=== PATIENT | female | born 1975 | race American Indian/Alaskan Native ===

== ENCOUNTER 2021-10-10 17:50 | Emergency (ER) | payer OTHER, SELFPAY ==
[2021-10-10 18:06] VITALS: BP 153/90; PULSE 100; RESP 16; TEMP 36.7; O2SAT 99; BMI 20.9
[2021-10-10] MEDS: Morphine Sulfate Immed Release 15 MG TABLET PO (20:12)
[2021-10-10] MEDS: Lidocaine HCl 2 % 20 ML VIAL 5 ML INFILTRATI (20:16)
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
--- NOTE | 2021-10-10 22:34 | PC.NURSE ---
DRAIN PLACE TO [facility] BY ERICA CLINTON AND DR YEAGER.
[2021-10-10] MEDS: Ibuprofen 600 MG TABLET PO (22:43)
== END 2021-10-10 22:55 | disposition home or self-care (01) ==
PROVIDERS: Emergency Provider Emergency Medicine
DX: N75.1 Abscess of Bartholin's gland (principal)
CPT/HCPCS: 56420; 87071; 87077; 87186; 87205; 99284

== ENCOUNTER 2021-10-11 14:12 | Emergency (ER) | payer OTHER, SELFPAY ==
[2021-10-11 14:35] VITALS: BP 131/70; PULSE 82; RESP 16; TEMP 36.6; O2SAT 100; BMI 23.3
--- NOTE | 2021-10-11 17:17 | ECG_ITS ---
Test Reason : ABD PAIN Blood Pressure : / mmHG Vent. Rate : 069 BPM Atrial Rate : 069 BPM P-R Int : 184 ms QRS Dur : 078 ms QT Int : 408 ms P-R-T Axes : 079 059 050 degrees QTc Int : 437 ms Normal sinus rhythm Normal ECG No previous ECGs available Referred By: Naya Tobias Electronically Signed By:MELISSA ORTIZ MD
--- NOTE | 2021-10-11 17:18 | ED_ITS ---
HPI - General Adult General Chief complaint: General Medical Stated complaint: dizziness Time Seen by Provider: 10/11/21 17:16 Source: patient Mode of arrival: ambulatory Limitations: no limitations History of Present Illness HPI narrative: 46-year-old female came in for evaluation of dizziness and lightheadedness. Patient was seen yesterday for Bartholin gland abscess, status post I&D last night patient was prescribed ibuprofen 600 mg if needed for pain patient was taking the medicine, all day today patient has been having abdominal discomfort, feeling dizzy and woozy lightheadedness. Patient declined fever, chills, chest pain, nausea, vomiting, diarrhea, or vaginal bleeding or discharge. Related Data Home Medications Medication Instructions Recorded Confirmed albuterol sulfate 90 mcg/actuation 1 - 2 puff INHALATION Q6H PRN g 02/06/21 aerosol inhaler bupropion HCl 150 mg 24 hr tablet, 150 mg PO QAM 02/06/21 extended release (Wellbutrin XL) docusate sodium 100 mg capsule 100 mg PO DAILY 02/06/21 fluticasone 250 mcg-salmeterol 50 1 inh INHALATION BID 02/06/21 mcg/dose blistr powdr for inhalation (Advair Diskus) loratadine 10 mg tablet (Allergy 10 mg PO DAILY PRN 02/06/21 Relief (loratadine)) ondansetron 4 mg disintegrating 4 mg PO Q8H PRN 02/06/21 tablet polyethylene glycol 3350 17 17 g PO DAILY 02/06/21 gram/dose oral powder sennosides 8.6 mg capsule (senna) 8.6 mg PO DAILY 02/06/21 Previous Rx's Medication Instructions Recorded carisoprodol 350 mg tablet 350 mg PO BEDTIME PRN #14 tab 02/18/21 ibuprofen 600 mg tablet 600 mg PO Q8H PRN #60 tab 10/10/21 Allergies Allergy/AdvReac Type Severity Reaction Status Date / Time latex [LATEX] Allergy Mild RASH Unverified 05/15/20 19:05 cyclobenzaprine Allergy Unknown RASH Unverified 05/15/20 19:05 [From FLEXERIL] gabapentin [GABAPENTIN] Allergy Unknown HIVES Unverified 05/15/20 19:05 tramadol [TRAMADOL] AdvReac Severe SEIZURE Unverified 05/15/20 19:05 Epideral AdvReac Unknown anaphylaxis Uncoded 03/31/16 00:00 flexiril AdvReac Unknown hives Uncoded 03/31/16 00:00 gabapentin AdvReac Unknown rash Uncoded 03/31/16 00:00 tramadol AdvReac Unknown anaphylaxis Uncoded 03/31/16 00:00 Review of Systems Review of Systems: All other systems are reviewed and are negative Constitutional: Reports as per HPI and Reports no additional constitutional c omplaints Eyes: Reports as per HPI and Reports no additional eye complaints Reports system reviewed and no additional complaints, except as documented Cardiovascular: Reports as per HPI and Reports no additional cardiovascular complaints Respiratory: Reports as per HPI and Reports no additional respiratory complaints Gastrointestinal: Reports as per HPI and Reports no additional gastrointestinal complaints Genitourinary: Reports no additional female genitourinary complaints Musculoskeletal: Reports no additional musculoskeletal complaints Skin/Breast: Reports system reviewed and no additional complaints, except as docu Psychiatric: Reports no additional psychiatric complaints Endocrine: Reports no additional endocrine complaints Hematologic/Lymphatic: Reports no additional hematologic/lymphatic complaints Allergic/Immunologic: Reports no additional allergic/immunologic complaints Reports system reviewed and no additional complaints, except as documented and Reports Abnormal speech present [facility], [facility] Past Medical History Medical History Asthma Back pain at L4-L5 level Chronic GERD Gastritis Insomnia due to medical condition PTSD (post-traumatic stress disorder) Surgical History History of repair of ACL Family History Family History Mother Alcohol abuse Son Autism Social History Social History Advance Directives: No Advance Directives Information Provided: No Physical Exam ED Vital Signs: Vital Signs - 24 hr 10/11/21 14:35 Temperature 98 F Pulse Rate 82 Respiratory Rate 16 Blood Pressure 131/70 Pulse Oximetry 100 BMI result Body Mass Index 23.3 Vital signs have been reviewed as appeared to be correct. Blood pressure normal. Heart rate normal. Respiration rate normal. Temperature normal. Oxygen saturation normal. Appearance: Alert. Oriented X3. No acute distress. Head: Normal external exam. Normocephalic. Atraumatic. No Billingsley signs noted. No raccoon eyes noted Eyes: PERRLA. EOMI. Conjunctiva and sclera normal. Eyelids normal. ENT: TM's Normal. Pharynx normal. Uvula midline. Moist mucous membranes. No trismus noted. No drooling noted. No muffled voice noted. Neck: Normal inspection. Neck supple. FROM. No adenopathy. Thyroid Normal. No meningeal signs. No neck mass noted. CVS: Normal heart rate and rhythm. Heart sound normal. No murmurs noted. Pulses normal throughout. Respiratory: No respiratory distress. Painless inspiration. Breath sounds normal. No wheezes/rales/rhonchi noted. Chest nontender. No accessory muscle usage noted or decreased air movement noted. Abdomen: Soft and nontender. Bowel sounds normal in all 4 quadrants. No distention noted. No organomegaly noted. No visible injury noted. 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 Back: No CVA tenderness. Full range of motion noted. Skin: Skin warm and dry. Normal skin color. Normal skin turgor. No rashes/lesions/lacerations noted. Extremities: No lower extremity edema. Extremities exhibit normal range of motion. Extremities nontender. Neuro: Oriented X 3. Cranial nerve exam: II-XII are grossly intact No motor deficit. No sensory deficit. Reflexes normal. Course Reevaluation(s) Reevaluation #1: Patient eloped before full evaluation. Patient during the exam was awake and alert and oriented x4, no apparent SI or psychiatric hallucination. Time: 17:54 Discharge Plan Discharge Clinical Impression: Dizziness Patient Disposition: Elopement Prescriptions: No Action ibuprofen 600 mg tablet 600 mg PO Q8H PRN (Reason: pain) Qty: 60 0RF carisoprodol 350 mg tablet 350 mg PO BEDTIME PRN (Reason: muscle pain) Qty: 14 0RF albuterol sulfate 90 mcg/actuation HFA aerosol inhaler 1 - 2 puff inhalation Q6H PRN0RF fluticasone propion-salmeterol [Advair Diskus] 250-50 mcg/dose blister with device 1 inh inhalation BID 0RF senna 8.6 mg capsule 8.6 mg PO DAILY 0RF docusate sodium 100 mg capsule 100 mg PO DAILY 0RF polyethylene glycol 3350 17 gram/dose powder 17 g PO DAILY 0RF loratadine [Allergy Relief (loratadine)] 10 mg tablet 10 mg PO DAILY PRN0RF ondansetron 4 mg tablet,disintegrating 4 mg PO Q8H PRN (Reason: nausea and vomiting) 0RF bupropion HCl [Wellbutrin XL] 150 mg tablet extended release 24 hr 150 mg PO QA 0RF Discharge Date/Time: 10/11/21 17:47
--- NOTE | 2021-10-11 17:44 | PC.NURSE ---
pt rang, upon this nurse going into the room, the patient was tearful and stated that she had to leave and she was a single parent of an autistic child who was currently acting out with the caregiver, patient stated she knew she needed to be seen and will return once she is able to settle her son. provider was notified. pt will be discharged as eloped.
== END 2021-10-11 17:47 | disposition left against medical advice (07) ==
PROVIDERS: Emergency Provider Emergency Medicine
DX: R42 Dizziness and giddiness (principal); Z79.899 Other long term (current) drug therapy
CPT/HCPCS: 93005; 96374; 99283; 99284

== ENCOUNTER → 2021-10-13 09:39 | Outpatient (BNVA) | payer OTHER, SELFPAY | PROVIDERS: Visit Provider Obstetrics & Gynecology | DX: N75.1 Abscess of Bartholin's gland (principal) | CPT/HCPCS: 99212 ==

== ENCOUNTER → 2021-11-16 08:13 | Outpatient (BNVA) | payer OTHER, SELFPAY | PROVIDERS: Visit Provider Obstetrics & Gynecology | DX: N75.1 Abscess of Bartholin's gland (principal) | CPT/HCPCS: 99212 ==

== ENCOUNTER 2021-12-17 23:28 | Emergency (ER) | payer OTHER, SELFPAY ==
--- NOTE | ~2021-12-17 | XR_ITS ---
EXAMINATION: XR HAND, RIGHT CLINICAL INFORMATION: Pain and swelling COMPARISON: None TECHNIQUE: PA, lateral, and oblique views of the right hand. FINDINGS: No fracture or dislocation. Alignment is anatomic. Joint spaces are maintained. Soft tissues are unremarkable. XR/XR hand RT min 3V IMPRESSION: Normal right hand.
[2021-12-17 23:35] VITALS: BP 111/75; PULSE 84; RESP 16; TEMP 36.9; O2SAT 100; BMI 23.3
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
--- NOTE | 2021-12-18 00:12 | PC.NURSE ---
Discharged pt for [address], Reviewed discharge instructions with pt. pt verbalized understanding.
== END 2021-12-18 00:15 | disposition home or self-care (01) ==
PROVIDERS: Emergency Provider Emergency Medicine
DX: S60.011A Contusion of right thumb without damage to nail, initial encounter (principal); M79.641 Pain in right hand; Y29.XXXA Contact with blunt object, undetermined intent, initial encounter; Y93.9 Activity, unspecified; Y92.9 Unspecified place or not applicable; Y99.9 Unspecified external cause status; Z79.899 Other long term (current) drug therapy
CPT/HCPCS: 73130; 99283

== ENCOUNTER 2023-10-24 13:17 | Emergency (ER) | payer BC, SELFPAY ==
[2023-10-24 13:27] VITALS: BP 135/88; PULSE 84; RESP 16; TEMP 36.2; O2SAT 100; BMI 24.1
--- NOTE | 2023-10-24 13:29 | ED_ITS ---
HPI - General Adult General Chief complaint: Ear Problems Stated complaint: hearing loss nasal issue covid + Time Seen by Provider: 10/24/23 16:26 Source: patient Mode of arrival: ambulatory Limitations: no limitations History of Present Illness HPI narrative: Patient is a 48 year old assigned female at with a history of PTSD presenting to the emergency department today with congestion and bilateral intermittent ear stuffiness. Patient states that over the last few days she has been positive for COVID-19 and is having intermittent bilateral ear fullness. Patient denies any dizziness, lightheadedness, abdominal pain, nausea, vomiting, fever, chills, blurry vision, double vision, loss of vision, chest pain, difficulty breathing, shortness of breath, back pain, night sweats, pain with urination, increased urinary frequency, increased urinary urgency, blood in her urine or stool, syncope or a near syncopal episode, recent trauma or falls, bowel incontinence, bladder incontinence, bowel retention, bladder retention, or any other complaints at this time. Onset (ago): day(s) Severity: mild Severity scale (1-10): 3 Relieving factors: none Exacerbating factors: none Associated symptoms: denies other symptoms Treatments prior to arrival: none Related Data Previous Rx's Medication Instructions Recorded ibuprofen 600 mg tablet 600 mg PO Q8H PRN pain #60 tabs 10/10/21 doxycycline hyclate 100 mg tablet 100 mg PO BID 7 days #14 tabs 10/24/23 prednisone 20 mg tablet 20 mg PO DAILY 7 days #7 tabs 10/24/23 Allergies Allergy/AdvReac Type Severity Reaction Status Date / Time latex [LATEX] Allergy Mild RASH Unverified 05/15/20 19:05 cyclobenzaprine Allergy Unknown RASH Unverified 05/15/20 19:05 [From FLEXERIL] gabapentin [GABAPENTIN] Allergy Unknown HIVES Unverified 05/15/20 19:05 tramadol [TRAMADOL] AdvReac Severe SEIZURE Unverified 05/15/20 19:05 Epideral AdvReac Unknown anaphylaxis Uncoded 03/31/16 00:00 flexiril AdvReac Unknown hives Uncoded 03/31/16 00:00 gabapentin AdvReac Unknown rash Uncoded 03/31/16 00:00 tramadol AdvReac Unknown anaphylaxis Uncoded 03/31/16 00:00 Review of Systems Constitutional: Constitutional: Reports no additional constitutional complaints, Denies chills, Denies fever(s) and Denies night sweats Eyes: Eyes: Reports no additional eye complaints, Denies blurry vision, Denies change in vision, Denies diplopia, Denies eye discharge, Denies loss of vision and Denies eye pain ENT: Denies dizziness and Reports nasal congestion Comments: intermittent ear fullness Cardiovascular: Cardiovascular: Reports no additional cardiovascular complaints, Denies chest pain, Denies lightheadedness, Denies Loss of Consciousness and Denies dyspnea Respiratory: Respiratory: Reports no additional respiratory complaints and Denies dyspnea Gastrointestinal: Gastrointestinal: Reports no additional gastrointestinal complaints, Denies abdominal pain, Denies melena, Denies hematochezia, Denies change in bowel habits and Denies change in stool character Genitourinary: Genitourinary: Denies hematuria, Denies urinary frequency, Denies dysuria, Denies urinary incontinence, Denies urinary hesitancy and Denies urinary urgency Musculoskeletal: Musculoskeletal: Reports no additional musculoskeletal complaints, Denies numbness and Denies tingling Neurologic: Denies dizziness, Denies loss of vision, Denies numbness and Denies tingling Psychiatric: Psychiatric: Reports no additional psychiatric complaints Endocrine: Endocrine: Reports no additional endocrine complaints Hematologic/Lymphatic: Hematologic/Lymphatic: Reports no additional hematologic/lymphatic complaints Allergic/Immunologic: Allergic/Immunologic: Reports no additional allergic/immunologic complaints [facility] Past Medical History Attestation statement: The following information was validated with the patient. Source: old records reviewed and nursing notes reviewed Medical History Insomnia due to medical condition Back pain at L4-L5 level PTSD (post-traumatic stress disorder) Asthma Gastritis Chronic GERD Surgical History History of repair of ACL Family History Family History Mother Alcohol abuse Son Autism Social History Social History Advance Directives: No Advance Directives Information Provided: No Physical Exam ED Vital Signs: Vital Signs - 24 hr 10/24/23 13:27 Temperature 97.1 F Pulse Rate 84 Respiratory Rate 16 Blood Pressure 135/88 Pulse Oximetry 100 Oxygen Delivery Method Room Air BMI result Body Mass Index 24.1 Const General: cooperative, no acute distress, alert and awake Nutritional Appearance: well nourished Orientation/consciousness: patient oriented x3 Limitations: no limitations HENMT Head: Yes normal to inspection and Yes atraumatic Ears: hearing grossly normal bilaterally, external ears normal and TM's normal bilaterally General nose exam: Normal external nose present, no nasal discharge noted and no epistaxis Face and sinus: Yes normal facial exam, No abrasion and No laceration Mouth: Normal oral and palatal mucosa present, no drooling and no muffled voice Eyes General: appearance normal, both eyes and all related structures Periorbital: periorbital findings normal Eyelids: Yes eyelids normal Conjunctivae: conjunctivae normal Pupils: Equal, round and reactive pupils present EOM: EOMs intact bilaterally Neck Neck: Yes normal visual inspection, Yes full ROM and Yes no lymphadenopathy Chest Chest palpation & inspection: normal inspection of the chest Resp Effort & Inspection: normal respiratory effort and able to speak in complete sentences GI Inspection: Yes normal to inspection Neuro General: patient oriented x3 and moves all extremities Cranial nerves: Yes Equal, round and reactive pupils present Cognition (Neuro): normal cognition Motor exam (neuro): 5/5 motor strength present throughout Sensory Exam: Normal double simultaneous stimulation for sensation Coordination: [id number] test normal Extrem General: Yes normal to inspection, Yes full ROM and Yes capillary refill normal Psych Appearance: grossly normal Mental Status: mental status grossly normal Affect: normal affect Attitude: cooperative Thought process: Normal thought process present Thought content: Normal thought content present Insight: Good insight present (Psych) Course Course Course Narrative: RME:?48 yo female hx of PTSD, insomnia hearing loss/ muffled hearing intermittently after testing positive for covid last week. taking OTC pain relievers last took at 1000 today. also admits to noticing bumps to either side of her nose. +right TM slightly obscured by cerumen Full HPI, ROS and PE to be performed by the primary ED provider. Medical Decision Making Medical Decision Making [facility] Narrative: Patient is a 48 year old assigned female at with a history of PTSD presenting to the emergency department today with nasal congestion, COVID-19, and intermittent bilateral ear fullness. Patient's physical exam was unremarkable. Patient's clinical presentation is most consistent with sinusitis. I explained my physical exam findings to the patient. I answered all questions asked by the patient. I stressed the importance of the patient taking her medication as prescribed. I stressed the importance of the patient following up with her primary care provider. I stressed the importance of the patient returning to the emergency department immediately if her symptoms were to worsen or if she were to develop any dizziness, shortness of breath, difficulty breathing, chest pain, blurry vision, loss of vision, nausea, vomiting, abdominal pain, fever, chills, back pain, or any other complaints. Patient verbalized agreement and understanding with this treatment plan and discharge. Differential Diagnosis Differential Diagnoses: The differential diagnosis associated with the presentation includes COVID-19 Sinusitis Viral illness Admission/Observation Consideration of admission/observation: Escalation of care including admission/observation considered Patient would have been admitted to the hospital had her clinical presentation warranted hospital admission. Prescription Management I considered prescription management with: Antibiotic (patient prescribed an antibiotic for sinusitis) Discharge Plan Discharge Clinical Impression: Sinusitis Patient Disposition: Home, Self-Care Instructions: Sinusitis (ED) Additional Instructions: Follow up with your primary care provider. Return to the emergency department immediately if your symptoms worsen or if you develop any dizziness, shortness of breath, difficulty breathing, chest pain, blurry vision, loss of vision, nausea, vomiting, abdominal pain, fever, chills, back pain, or any other complaints. Prescriptions: New prednisone 20 mg tablet 20 mg PO DAILY 7 Days Qty: 7 0RF doxycycline hyclate 100 mg tablet 100 mg PO BID 7 Days Qty: 14 0RF No Action ibuprofen 600 mg tablet 600 mg PO Q8H PRN (Reason: pain) Qty: 60 0RF Referrals: [facility] Family Medicine [Provider Group] (Call to establish and follow up with a primary care provider. If you already have a primary care provider, please follow up with them.) [facility] [Provider Group] (Call to establish and follow up with a primary care provider. If you already have a primary care provider, please follow up with them.) [facility] Primary [facility] [Provider Group] (Call to establish and follow up with a primary care provider. If you already have a primary care provider, please follow up with them.) Stand Alone Forms: Work/School Release Interventions: ED Discharge Assessment Last Done: 10/24/23 17:29 Discharge Date/Time: 10/24/23 17:30 Print Language: [place]
== END 2023-10-24 17:30 | disposition home or self-care (01) ==
PROVIDERS: Emergency Provider Emergency Medicine Emergency Medical Services; PCP Internal Medicine
DX: J32.9 Chronic sinusitis, unspecified (principal); U07.1 COVID-19
CPT/HCPCS: 99282; 99283